=== PATIENT | male | born 1970 | race Caucasian/White ===

== ENCOUNTER 2020-10-31 18:08 | Inpatient (IN) | payer OTHER ==
[2020-10-31 18:50] VITALS: BMI 25.8
[2020-10-31] MEDS ORDERED: MENTHOL/PHENOL 1 EACH UD MM PRN (20:23)
[2020-10-31] MEDS ORDERED: MAGNESIUM HYDROX 2400MG/30ML ORAL SUSPENSION 30 ML CUP PO PRN (20:23)
[2020-10-31] MEDS ORDERED: NICOTINE POLACRILEX 2 MG GUM BUC PRN (20:23)
[2020-10-31] MEDS ORDERED: BISMUTH SUBSALICYLATE 524 MG/30 ML PO PRN (20:23)
[2020-10-31] MEDS ORDERED: ONDANSETRON *ODT* 4 MG TABLET SL PRN (20:23)
[2020-10-31] MEDS ORDERED: ACETAMINOPHEN 325 MG TABLET (FP) PO PRN ×2 (20:23)
[2020-10-31] MEDS ORDERED: IBUPROFEN 400 MG TABLET (FP) PO PRN (20:23)
[2020-10-31] MEDS ORDERED: MAG HYDROX/AL HYDROX/SIMETH 30 ML UNIT-DOSE CUP PO PRN (20:23)
[2020-10-31] MEDS ORDERED: hydrOXYzine PAMOATE 25 MG CAPSULE (FP) PO PRN (20:23)
[2020-10-31] MEDS ORDERED: MAGNESIUM CITRATE 300 ML BOTTLE PO PRN (20:23)
[2020-10-31] MEDS ORDERED: cloNIDine HCL 0.1 MG TABLET PO PRN (20:26)
[2020-10-31] MEDS ORDERED: METHADONE HCL 10 MG TABLET (FOR DETOX USE ONLY) PO ONE (20:26)
[2020-10-31] MEDS: MELATONIN 5 MG TABLETS PO SCH (23:17)
[2020-10-31] MEDS: THIAMINE HCL 100 MG TABLET (FP) PO SCH (23:18)
[2020-10-31] MEDS: diazePAM 5 MG TABLET PO SCH (23:18)
[2020-11-01] MEDS: diazePAM 5 MG TABLET PO SCH ×4 (05:42→22:15)
[2020-11-01] MEDS ORDERED: METHADONE HCL 5 MG TABLET (FOR DETOX USE ONLY) ONE (08:32)
[2020-11-01] MEDS ORDERED: METHADONE HCL 10 MG TABLET (FOR DETOX USE ONLY) ONE (08:32)
[2020-11-01] MEDS: diazePAM 5 MG TABLET PO PRN (09:07)
[2020-11-01] MEDS: PRENATAL VITAMINS W/ FOLIC ACID TABLET (FP) PO SCH (09:08)
[2020-11-01] MEDS: NICOTINE 14 MG/24 HOURS TOPICAL PATCH TD SCH (09:08)
[2020-11-01] MEDS ORDERED: METHADONE (DETOX) 20 MG, METHADONE (DETOX) 5 MG PO ONE (10:00)
[2020-11-01 10:09] LABS: BLOOD UREA NITROGEN 20.4 mg/dL (7-18); CALCIUM 9.3 mg/dL (8.5-10.1)
[2020-11-01 10:12] LABS: HEMATOCRIT 32.7 % (35.4-49); HEMOGLOBIN 10.5 GM/dL (11.7-16.9); MCH 20.2 pg (25.7-33.7); MEAN CELL VOLUME 63.1 fl (80-96); MEAN PLT VOLUME 9.1 fl (7.5-11.1); PLATELET COUNT 281 K/MM3 (134-434); RBC 5.19 M/mm3 (4.00-5.60); RDW 16.5 % (11.9-15.9)
[2020-11-01 10:13] LABS: CREATININE 0.9 mg/dL (0.55-1.3)
[2020-11-01 10:14] LABS: BILIRUBIN,TOTAL 0.8 mg/dL (0.2-1); TOT PROT 7.3 g/dl (6.4-8.2)
[2020-11-01] MEDS: MELATONIN 5 MG TABLETS PO SCH (22:16)
[2020-11-01] MEDS: THIAMINE HCL 100 MG TABLET (FP) PO SCH (22:16)
[2020-11-02] MEDS: diazePAM 5 MG TABLET PO SCH ×3 (05:16→22:47)
[2020-11-02] MEDS ORDERED: METHADONE HCL 10 MG TABLET (FOR DETOX USE ONLY) PO ONE (10:00)
[2020-11-02] MEDS: PRENATAL VITAMINS W/ FOLIC ACID TABLET (FP) PO SCH (10:09)
[2020-11-02] MEDS: NICOTINE 14 MG/24 HOURS TOPICAL PATCH TD SCH (10:10)
[2020-11-02] MEDS: diazePAM 5 MG TABLET PO PRN ×2 (10:11→17:36)
[2020-11-02] MEDS: MELATONIN 5 MG TABLETS PO SCH (22:47)
[2020-11-02] MEDS: THIAMINE HCL 100 MG TABLET (FP) PO SCH (22:47)
[2020-11-03] MEDS: diazePAM 5 MG TABLET PO SCH ×2 (05:15→17:39)
[2020-11-03 06:07] LABS: SARS-CoV-2 NAA Not Detected (Not Detected)
[2020-11-03] MEDS ORDERED: METHADONE HCL 5 MG TABLET (FOR DETOX USE ONLY) ONE (09:37)
[2020-11-03] MEDS ORDERED: METHADONE HCL 10 MG TABLET (FOR DETOX USE ONLY) ONE (09:37)
[2020-11-03] MEDS ORDERED: METHADONE (DETOX) 10 MG, METHADONE (DETOX) 5 MG PO ONE (10:00)
[2020-11-03] MEDS: NICOTINE 14 MG/24 HOURS TOPICAL PATCH TD SCH ×2 (10:39→10:41)
[2020-11-03] MEDS: PRENATAL VITAMINS W/ FOLIC ACID TABLET (FP) PO SCH (10:39)
[2020-11-03] MEDS: diazePAM 5 MG TABLET PO PRN (10:39)
[2020-11-03] MEDS: METHOCARBAMOL 500 MG TABLET PO PRN ×2 (10:39→22:40)
[2020-11-03] MEDS: THIAMINE HCL 100 MG TABLET (FP) PO SCH (22:40)
[2020-11-03] MEDS: MELATONIN 5 MG TABLETS PO SCH (22:40)
[2020-11-04] MEDS ORDERED: diazePAM 5 MG TABLET PO ONE (06:00)
[2020-11-04] MEDS ORDERED: METHADONE HCL 10 MG TABLET (FOR DETOX USE ONLY) PO ONE (10:00)
[2020-11-04] MEDS: PRENATAL VITAMINS W/ FOLIC ACID TABLET (FP) PO SCH (10:08)
[2020-11-04] MEDS: NICOTINE 14 MG/24 HOURS TOPICAL PATCH TD SCH (10:09)
[2020-11-04] MEDS: THIAMINE HCL 100 MG TABLET (FP) PO SCH (22:16)
[2020-11-04] MEDS: MELATONIN 5 MG TABLETS PO SCH (22:16)
[2020-11-05 05:43] VITALS: BP 119/77; PULSE 80; TEMP 97.1
[2020-11-05] MEDS ORDERED: METHADONE HCL 5 MG TABLET (FOR DETOX USE ONLY) PO ONE (06:00)
== END 2020-11-05 10:06 | disposition home or self-care (01) | DRG 773 ==
LOC: YASAS 18:08 → Y3N 21:40
PROVIDERS: ADMIT Allergy & Immunology; ATTEND Allergy & Immunology
PROC: HZ2ZZZZ Detoxification Services for Substance Abuse Treatment (ICD-10-PCS; principal; 2020-10-31)
DX: F11.23 Opioid dependence with withdrawal (principal); F10.230 Alcohol dependence with withdrawal, uncomplicated; F17.210 Nicotine dependence, cigarettes, uncomplicated; F32.9 Major depressive disorder, single episode, unspecified; D56.9 Thalassemia, unspecified; K21.9 Gastro-esophageal reflux disease without esophagitis; M19.071 Primary osteoarthritis, right ankle and foot; Z98.890 Other specified postprocedural states
CPT/HCPCS: 36415; 80053; 85027; 86780; 93005; 93010; C9803; Q0162; U0003; U0005